=== PATIENT | male | born 1950 | race Hispanic/Latino ===

== ENCOUNTER → 2024-09-24 | Outpatient (CLI) | payer OTHER ==
--- NOTE | 2024-09-25 07:19 | HMCIMG ---
EXAMINATION: ULTRASOUND SCREENING OF THE ABDOMINAL AORTA WITH COLOR DOPPLER. CLINICAL HISTORY: Screening for cardiovascular disorder. COMPARISON: No prior studies. TECHNIQUE: Real-time grayscale ultrasound images of the aorta. In addition, color Doppler is medically necessary to perform in order to evaluate vascularity and blood flow. FINDINGS: The proximal, mid, and distal aspects of the abdominal aorta are normal in caliber measuring 1.4 x 2.3 cm, 1.5 x 1.6 cm, and 1.5 x 1.6 cm in the AP and transverse dimensions respectively. There is no evidence of plaques in the aorta. The velocity in the mid aorta is 49 cm/s. IMPRESSION: Mild intimal thickening in the abdominal aorta. No aneurysm. /Pola
== END | disposition home or self-care (01) ==
LOC: RAH 09:53
PROVIDERS: ATTEND Student in an Organized Health Care Education/Training Program
DX: I77.811 Abdominal aortic ectasia (principal); Z13.6 Encounter for screening for cardiovascular disorders
CPT/HCPCS: 76775